=== PATIENT | female | born 1970 | race Caucasian/White ===

== ENCOUNTER 2016-10-30 14:11 | Emergency (ER) | payer OTHER ==
[~2016-10-30 14:11] MED LIST: FLEXERIL10 MG PO; NAPROXEN PO; NO MEDICATIONS; PREDNISONE PO; PRILOSEC20 M1 PO; ROBAXIN PO; SPIRIVA18 MCG PO; TYLENOL #3 PO; ZYRTEC-D T1 TAB.SR . PO; [UNRECOGNIZED DRUG - OTHER] OT
[2016-10-30] MEDS ORDERED: NO MEDICATIONS (14:22)
== END 2016-10-30 14:46 | disposition home or self-care (01) ==
LOC: SED 14:11
DX: R21 Rash and other nonspecific skin eruption (principal); J44.9 Chronic obstructive pulmonary disease, unspecified; F17.210 Nicotine dependence, cigarettes, uncomplicated
CPT/HCPCS: 99282